=== PATIENT | male | born 1980 | race Caucasian/White ===

== ENCOUNTER 2016-10-31 10:58 | Emergency (ER) | payer OTHER ==
[~2016-10-31] VITALS: Ht 172.7 cm; Wt 63.9 kg
[2016-10-31] MEDS ORDERED: KETOROLAC 30 MG/1 ML ONE (11:27)
[2016-10-31] MEDS ORDERED: KETOROLAC 30 MG/1 ML IM ONE (11:30)
[2016-10-31 13:38] VITALS: BP 118/74
== END 2016-10-31 13:39 | disposition home or self-care (01) ==
LOC: ED 11:26
DX: S13.4XXA Sprain of ligaments of cervical spine, initial encounter (principal); S33.5XXA Sprain of ligaments of lumbar spine, initial encounter; F17.200 Nicotine dependence, unspecified, uncomplicated; V43.52XA Car driver injured in collision with other type car in traffic accident, initial encounter; Y93.89 Activity, other specified; Y99.8 Other external cause status; Y92.410 Unspecified street and highway as the place of occurrence of the external cause
CPT/HCPCS: 72072; 72110; 72125; 96372; 99284; J1885

== ENCOUNTER 2016-11-05 07:22 | Emergency (ER) | payer OTHER ==
[~2016-11-05] VITALS: Ht 167.6 cm; Wt 63.0 kg
[2016-11-05] MEDS ORDERED: HYDROmorphone 1 MG/ML, 1ML IVPush ONE (09:00)
[2016-11-05] MEDS ORDERED: DIAZEPAM 5 MG/ML, 10ML VIAL IVPush ONE (09:00)
[2016-11-05] MEDS ORDERED: DEXAMETHASONE 4 MG/ML, 1ML IVPush ONE (09:00)
[2016-11-05] MEDS ORDERED: HYDROmorphone 1 MG/ML, 1ML ONE (09:30)
[2016-11-05] MEDS ORDERED: DEXAMETHASONE 4 MG/ML, 5ML ONE (09:30)
[2016-11-05 13:00] VITALS: BP 104/56
[2016-11-05] MEDS ORDERED: GADOBUTROL 7.5 MMOL/7.5 ML PFS ONE (14:48)
== END 2016-11-05 13:01 | disposition home or self-care (01) ==
LOC: ED 09:33
DX: S33.5XXA Sprain of ligaments of lumbar spine, initial encounter (principal); M51.36 Other intervertebral disc degeneration, lumbar region; Z98.890 Other specified postprocedural states; Z88.1 Allergy status to other antibiotic agents; V89.2XXA Person injured in unspecified motor-vehicle accident, traffic, initial encounter; Y93.89 Activity, other specified; Y92.488 Other paved roadways as the place of occurrence of the external cause; Y99.8 Other external cause status
CPT/HCPCS: 72158; 81003; 96374; 96375; 99285; A9585; J1100; J1170; J3360